=== PATIENT | female | born 1985 | race Caucasian/White ===

== ENCOUNTER 2016-11-14 14:19 | Inpatient (IN) | payer BC ==
[~2016-11-14] VITALS: Ht 160 cm; Wt 80.3 kg
[2016-11-21] VITALS (10 sets, daily range): BP systolic 117–152; BP diastolic 62–84; PULSE 70–102; RESP 16–20; TEMP 98.2–99.8
[2016-11-21] MEDS ORDERED: LACTATED RINGER'S 1000 ML IV SCH (05:45)
[2016-11-21] MEDS ORDERED: LACTATED RINGER'S 1000 ML IV ONE (05:45)
[2016-11-21] MEDS ORDERED: CITRIC ACID-SODIUM CITRATE LIQ 30 ML UDC PO SCH (05:45)
[2016-11-21] MEDS ORDERED: ceFAZolin 2 GM PREMIX 50 ML IV SCH (05:45)
[2016-11-21 06:24] LABS: AUTOMATED NEUTROPHIL # 10.4 TH/MM3 (1.8-7.7); BASOPHIL # 0.1 TH/MM3 (0-0.2); BASOPHIL % 0.4 % (0.0-2.0); EOSINOPHIL # 0.2 TH/MM3 (0-0.4); EOSINOPHIL % 1.4 % (0.0-4.0); HEMATOCRIT 38.2 % (35.0-46.0); HEMO FLAGS DIFF FINAL; LYMPH % 13.9 % (9.0-44.0); LYMPHOCYTE # 1.9 TH/MM3 (1.0-4.8); MEAN CELL VOLUME 87.5 FL (80.0-100.0); MEAN CORPUSCULAR HEMOGLOBIN 30.2 PG (27.0-34.0); MEAN CORPUSCULAR HGB CONC 34.5 % (32.0-36.0); NEUT % 76.3 % (16.0-70.0); PLATELET COUNT 189 TH/MM3 (150-450); RED BLOOD COUNT 4.37 MIL/MM3 (4.00-5.30); RED CELL DISTRIBUTION WIDTH 12.3 % (11.6-17.2); WHITE BLOOD COUNT 13.6 TH/MM3 (4.0-11.0)
[2016-11-21] MEDS ORDERED: PREN29TA PO (06:42)
[2016-11-21 06:47] LABS: BLOOD, URINE NEG (NEG); GLUCOSE,URINE NEG (NEG); KETONE, URINE NEG (NEG); NITRITE,URINE NEG (NEG); PH, URINE 5.5 (5.0-8.5); SQUAMOUS EPITHELIAL CELL URINE 1 /hpf (0-5); URINE COLOR LIGHT-YELLOW (YELLW/STRAW)
[2016-11-21 06:50] LABS: COMMENT (UR) CULT NOT INDICATED; CULTURE IF INDICATED CULT NOT INDICATED
[2016-11-21] MEDS ORDERED: OXYTOCIN 10 UNIT/ML AMP ONE (07:22)
[2016-11-21] MEDS ORDERED: ACETAMINOPHEN 1000 MG/100 ML VIAL IV ONE (07:22)
--- NOTE | 2016-11-21 07:24 | HHI.HP ---
HPI Chief Complaint doing well breech, transfer from [facility] Date Seen: Nov 21, 2016 Time Seen: 07:10 Travel History International Travel<30 Days: No Contact w/Intl Traveler<30Days: No Known Affected Area: No History of Present Illness HPI 39 weeks breech and for primary CS Para: 0 : 1 Last Menstrual Period: Nov 21, 2016 History Past Medical History Medical History: Denies Significant Hx Past Surgical History Surgical History: No Previous Surgery Family History Family History: Negative Social History Alcohol Use: No Tobacco Use: No Substance Abuse: No Allergies-Medications (Allergen,Severity, Reaction): Coded Allergies: No Known Allergies (Unverified , 11/21/16) Home Meds Reported Medications Vit-Iron Carbonyl ( Plus Iron 29-1 mg)1 Tab Tab1 Tab PO DAILY #30 TAB Ref 0 11/21/16 Review of Systems Except as stated in HPI: all other systems reviewed are Neg Physical Exam Exam Limitations: Clinical Condition Vital Signs Date Time Temp Pulse Resp B/P Pulse Ox O2 Delivery O2 Flow Rate FiO2 11/21/16 06:59 101 144/84 11/21/16 06:58 98.6 11/21/16 06:25 98.2 11/21/16 06:15 16 11/21/16 06:04 89 136/81 Narrative GENERAL: Well-nourished, well-developed patient. SKIN: Warm and dry. HEAD: Normocephalic and atraumatic. EYES: No scleral icterus. No injection or drainage. ENT: No nasal drainage noted. Mucous membranes pink. Airway patent. NECK: Supple, trachea midline. No JVD. CARDIOVASCULAR: Regular rate and rhythm without murmurs, gallops, or rubs. RESPIRATORY: Breath sounds equal bilaterally. No accessory muscle use. BREASTS: Bilateral exam showed no masses , no retractions, no nipple discharge. ABDOMEN/GI: Abdomen soft, non-tender, bowel sounds present, no rebound, no guarding Gravid to [-] weeks size Fundal Height: [-] GENITOURINARY: External Genitalia: intact and normal in appearance BUS glands: [-] Cervix: [-] Dilatation: [-] Effacement: [-] Station: [-] Presentation: [-] Membranes: [intact or ruptured] Uterine Contractions: [-] FHT's: Category: [-] Baseline: [-] Reactive: [-] Variability: [-] Decels: [-] EXTREMITIES: No cyanosis or edema. BACK: Nontender without obvious deformity. No CVA tenderness. NEUROLOGICAL: Awake and alert. Motor and sensory grossly within normal limits. Five out of 5 muscle strength in all muscle groups. Normal speech. Data Data Vital Signs Reviewed: Yes Orders Admit To Inpatient (11/21/16 ) Vital Signs (Adult) .ON ADMISSION (11/21/16 05:38) Activity Oob Ad Erum (11/21/16 05:38) ^ Heart (11/21/16 05:38) Urinary Catheter Management OPHELIA.Q8H (11/21/16 05:38) ^ Preps (11/21/16 05:38) Scd / Olaf / Foot Pump OPHELIA.QSHIFT (11/21/16 05:38) ^ Ultrasound For Locatio (11/21/16 05:38) Diet Npo (11/21/16 Breakfast) Type And Screen (11/21/16 05:38) Complete Blood Count With Diff (11/21/16 05:38) Urinalysis - C+S If Indicated (11/21/16 05:38) Lactated Ringer's 1000 Ml Inj (Lr 1000 M (11/21/16 05:45) Lactated Ringer's 1000 Ml Inj (Lr 1000 M (11/21/16 05:45) Citric Acid-Sodium Citrate Liq (Bicitra (11/21/16 05:45) Cefazolin 2 Gm Premix (Ancef 2 Gm Premix (11/21/16 05:45) Labs Laboratory Tests Test 11/21/16 06:00 White Blood Count 13.6 Red Blood Count 4.37 Hemoglobin 13.2 Hematocrit 38.2 Mean Corpuscular Volume 87.5 Mean Corpuscular Hemoglobin 30.2 Mean Corpuscular Hemoglobin 34.5 Concent Red Cell Distribution Width 12.3 Platelet Count 189 Mean Platelet Volume 9.0 Neutrophils (%) (Auto) 76.3 Lymphocytes (%) (Auto) 13.9 Monocytes (%) (Auto) 8.0 Eosinophils (%) (Auto) 1.4 Basophils (%) (Auto) 0.4 Neutrophils # (Auto) 10.4 Lymphocytes # (Auto) 1.9 Monocytes # (Auto) 1.1 Eosinophils # (Auto) 0.2 Basophils # (Auto) 0.1 CBC Comment DIFF FINAL Differential Comment Urine Color LIGHT-YELLOW Urine Turbidity CLEAR Urine pH 5.5 Urine Specific Painter 1.010 Urine Protein NEG Urine Glucose (UA) NEG Urine Ketones NEG Urine Occult Blood NEG Urine Nitrite NEG Urine Bilirubin NEG Urine Urobilinogen LESS THAN 2.0 Urine Leukocyte Esterase NEG Urine RBC 1 Urine WBC 1 Urine Squamous Epithelial 1 Cells Microscopic Urinalysis Comment CULT NOT INDICATED Blood Type O POSITIVE Antibody Screen NEGATIVE Blood Bank Comment Assessment/Plan Problem List: (1) Breech presentation (2) 39 weeks gestation of Discharge Planning dc in 48-72 hours Marcos Bautista MD Nov 21, 2016 07:24
[2016-11-21] MEDS ORDERED: EPIDURAL-NO SYSTEMIC NARCOTICS XX PRN (07:25)
[2016-11-21] MEDS ORDERED: EPIDURAL-DIPHENHYDRAMINE HCL 50 MG CAP PO PRN (07:25)
[2016-11-21] MEDS ORDERED: EPIDURAL-DIPHENHYDRAMINE HCL 50 MG/ML VIAL IV PUSH PRN (07:25)
[2016-11-21] MEDS ORDERED: EPIDURAL-DO NOT ADMINISTER ANTICOAGULANTS XX PRN (07:25)
[2016-11-21] MEDS ORDERED: EPIDURAL-NALOXONE HCL 0.4 MG/ML AMP IV PRN (07:25)
[2016-11-21] MEDS ORDERED: MORPHINE SULFATE PF 5 MG/10 ML VIAL ONE (08:20)
--- NOTE | 2016-11-21 08:41 | PD.OB.DELI ---
Procedure Note Section Procedure Pre Op Diagnosis: (1) Breech presentation (2) 39 weeks gestation of Post Op Diagnosis: (1) Breech presentation Performed by Marcos Bautista Procedure: Primary Low Transverse Sec Indication for delivery: malposition Informed consent obtained: For anesthesia, For procedure Confirmed correct: Patient, Procedure Anesthesia: Epidural Monitoring during procedure: Blood pressure monitoring Urinary catheter: Inserted using sterile technique, To dependent drainage Sterile preparation: Duraprep Position: Supine with wedge to left side Operative Features Skin Incision: Pfannenstiel Uterine Incision: Low transverse w/knife / blunt ext Membranes Ruptured: Artificially Presentation: Occiput anterior Delivery of infant: Uneventful, Other ([place] breech) One Minute : 8 Five Minute : 9 Weight: 7# 9 oz Status of infant: Viable Placenta delivered: Intact Medications: Antibiotics, Oxytocin Estimated blood loss: 500 Procedure tolerated: Well Maternal Condition: Stable Condition: Stable Marcos Bautista MD Nov 21, 2016 08:41
[2016-11-21] MEDS ORDERED: OXYTOCIN 30 UNITS-500ML PREMIX 500 ML IV ONE (08:45)
[2016-11-21] MEDS ORDERED: SODIUM CHLORIDE 0.9% FLUSH 10 ML FLUSH IV FLUSH PRN (08:45)
[2016-11-21] MEDS ORDERED: oxyCODONE/ACETAMINOPHEN 5 MG/325 MG TAB PO PRN ×2 (08:45)
[2016-11-21] MEDS ORDERED: SIMETHICONE 80 MG CHEWABLE TAB PO PRN (08:45)
[2016-11-21] MEDS ORDERED: KETOROLAC TROMETHAMINE 60 MG/2 ML (IM) VIAL IM PRN (08:45)
[2016-11-21] MEDS ORDERED: SODIUM CHLORIDE 0.9% FLUSH 10 ML FLUSH IV FLUSH SCH (09:00)
[2016-11-21] MEDS ORDERED: OXYTOCIN 30 UNITS-500ML PREMIX 500 ML ONE (09:21)
[2016-11-21] MEDS ORDERED: ONDANSETRON HCL 4 MG/2 ML VIAL IV PUSH ONE (11:30)
[2016-11-21] MEDS ORDERED: LACTATED RINGER'S 1000 ML INJ 1,000 ML IV SCH (13:37)
[2016-11-21] MEDS ORDERED: OXYTOCIN 30 UNITS-500ML PREMIX 500 ML IV PRN (18:45)
[2016-11-21] MEDS ORDERED: ONDANSETRON ODT 4 MG TAB PO PRN (20:00)
[2016-11-22 04:00] VITALS: BP 120/72; PULSE 80; RESP 18; TEMP 98.4
[2016-11-22] MEDS: IBUPROFEN 600 MG TAB PO PRN ×2 (04:26→11:43)
[2016-11-22 05:34] VITALS: RESP 16
[2016-11-22 06:11] LABS: AUTOMATED NEUTROPHIL # 15.2 TH/MM3 (1.8-7.7); BASOPHIL % 0.2 % (0.0-2.0); EOSINOPHIL # 0.1 TH/MM3 (0-0.4); EOSINOPHIL % 0.3 % (0.0-4.0); HEMATOCRIT 34.1 % (35.0-46.0); HEMO FLAGS DIFF FINAL; LYMPH % 11.7 % (9.0-44.0); LYMPHOCYTE # 2.2 TH/MM3 (1.0-4.8); MEAN CELL VOLUME 87.5 FL (80.0-100.0); MEAN CORPUSCULAR HEMOGLOBIN 30.9 PG (27.0-34.0); MEAN CORPUSCULAR HGB CONC 35.3 % (32.0-36.0); MONO % 7.6 % (0.0-8.0); NEUT % 80.2 % (16.0-70.0); PLATELET COUNT 203 TH/MM3 (150-450); RED CELL DISTRIBUTION WIDTH 12.3 % (11.6-17.2); WHITE BLOOD COUNT 18.9 TH/MM3 (4.0-11.0)
--- NOTE | 2016-11-22 07:59 | HHI.OB ---
Subjective Post Day: 1 Remarks doing well post op day #1 Objective Vitals/I&O Vital Signs Date Time Temp Pulse Resp B/P Pulse Ox O2 Delivery O2 Flow Rate FiO2 11/22/16 05:34 16 11/22/16 04:00 98.4 80 18 120/72 11/21/16 23:53 117/77 11/21/16 23:53 99.7 79 18 11/21/16 20:00 98.4 75 20 122/69 11/21/16 17:00 99.8 102 18 152/84 11/21/16 12:00 98.2 70 18 120/62 11/21/16 09:48 87 18 118/71 Objective Remarks GENERAL: Well-nourished, well-developed patient. . ABDOMEN/GI: Abdomen soft, non-tender. bandage dry Fundus: Firm, non-tender at umbilicus. GENITOURINARY: Light to moderate bleeding. EXTREMITIES: No cyanosis or edema, non-tender, without signs of DVT. Medications and IVs Current Medications Medications (Trade) Dose Ordered Sig/Kena Route Start Time Stop Time Status Last Admin (Lr 1000 ml Inj) 1,000 ml @ 100 mls/hr Q10H IV 11/21/16 13:37 11/22/16 09:36 11/21/16 13:37 (NS Flush) 2 ml BID IV FLUSH 11/21/16 09:00 (NS Flush) 2 ml UNSCH PRN IV FLUSH 11/21/16 08:45 (Mylicon Chew) 80 mg QID PRN PO 11/21/16 08:45 (Motrin) 600 mg Q6H PRN PO 11/21/16 08:45 11/22/16 04:26 (Toradol Inj) 30 mg Q6H PRN IM 11/21/16 08:45 11/22/16 08:44 (Percocet 5-325 Mg) 1 tab Q4H PRN PO 11/21/16 08:45 (Percocet 5-325 Mg) 2 tab Q4H PRN PO 11/21/16 08:45 (M-M-R Ii Inj) 0.5 ml ONCE ONCE SQ 11/22/16 16:00 11/22/16 16:01 (Boostrix Inj) 0.5 ml ONCE ONCE IM 11/22/16 16:00 11/22/16 16:01 (Zofran Odt) 4 mg Q4H PRN PO 11/21/16 20:00 Assessment/Plan Problem List: (1) Breech presentation (2) 39 weeks gestation of Discharge Planning dc home in AM Marcos Bautista MD Nov 22, 2016 07:58
[2016-11-22] MEDS ORDERED: OXYC1TAB63 PO (08:02)
--- NOTE | 2016-11-22 08:03 | HHI.DCPOC ---
Discharge Care Plan Diagnosis: (1) Breech presentation Report Symptoms to Your Doctor -Temperate above 100.5 degrees -Redness, of incision or excessive or foul smelling drainage -Unusual pain or calf pain -Increased vaginal bleeding -Painful or difficulty urinating -Feelings of extreme sadness or anxiety after 2 weeks Goals to Promote Your Health * To prevent worsening of your condition and complications * To maintain your health at the optimal level Directions to Meet Your Goals Take your medications as prescribed Follow your dietary instruction Follow activity as directed Ensure plenty of rest for recovery Drink fluids for hydration Keep your appointments as scheduled Take your immunizations and boosters as scheduled If your symptoms worsen call your PCP, if no PCP go to Urgent Care Center or Emergency Room Smoking is Dangerous to Your Health. Avoid second hand smoke Call the 24-hour crisis hotline for domestic abuse at Marcos Bautista MD Nov 22, 2016 08:03
--- NOTE | 2016-11-22 08:05 | HHI.DS ---
Admission Date Nov 21, 2016 at 05:36 Discharge Date: Nov 22, 2016 Admitting Diagnosis Diagnosis: (1) Breech presentation Diagnosis: Principal (2) delivery delivered Diagnosis: Secondary : Primary Reason: breech : Single Brief History 39 weeks breech and for primary CS Hospital Course CS on 11/21 wants to go home 11/22 Pt Condition on Discharge: Good Discharge Disposition: Discharge Home Discharge Instructions Diet Instructions: As Tolerated, No Restrictions Activities You Can Perform: Pelvic Rest Activities to Avoid: Driving for 24 hrs Follow up Referrals: INVENTORY TAKER - 2 Weeks @ [facility] with Marcos Bautista MD New Medications: Oxycodone-Acetaminophen (Oxycodone-Acetaminophen) 5-325 mg Tab 2 TAB PO Q4H PRN PAIN SCALE 6 TO 10 #30 TAB Continued Medications: Vit-Iron Carbonyl ( Plus Iron 29-1 mg) 1 Tab Tab 1 TAB PO DAILY Nutritional Supplement #30 Ref 0 TAB Marcos Bautista MD Nov 22, 2016 08:05
[2016-11-22 08:30] VITALS: BP 120/70; PULSE 81; RESP 16; TEMP 98.1
--- NOTE | 2016-11-22 09:34 | MP ---
cc: SALO BAUTISTA M.D. DATE OF PROCEDURE 11/21/2016 PROCEDURE Primary low transverse section. PREOPERATIVE DIAGNOSIS Breech infant, 39 weeks. POSTOPERATIVE DIAGNOSIS Breech , [address] Salo Bautista ESTIMATED BLOOD LOSS 500 cc. ANESTHESIA Spinal, Dr. Crowley. COMPLICATIONS None. FINDINGS Live female , Apgars of 8 and 9. Nazario breech presentation. Weight 7 pounds, 9 ounces. PROCEDURE IN DETAIL After informed consent, the patient was taken to the operating room where she was placed under spinal anesthesia, placed in supine position, left lateral tilt. The abdomen, perineum and vagina were prepped and draped in normal sterile fashion. Time-out was taken and DuraPrep was allowed to dry. Once the patient was under adequate anesthesia and a Thao was draining well, a Pfannenstiel skin incision was carried sharply through the skin to the fascia. The fascia was nicked in the midline and the incision was extended laterally using Mitchell scissors. The rectus muscle was in the midline. The peritoneum was entered bluntly with a finger. The incision was extended laterally using blunt traction. A bladder blade was placed in the abdomen. A bladder flap was created by dissecting the bladder off the lower uterine segment. The bladder blade was replaced to protect the bladder and a low-transverse uterine incision was then made, carried sharply into the uterine cavity. Clear fluid was noted. The incision was extended laterally using traction upward and downward. A hand was placed in the uterus. The infant's buttocks was guided through the incision. Using fundal pressure the infant was delivered all the way up to the level of the scapula. The infant's legs were flexed across the chest and delivered. The infant was rotated to the right and the left arm was flexed across the chest and delivered. The was rotated to the left and the right arm was flexed across the chest and delivered using Mauriceau maneuver, the 's head readily deliver, nose and mouth suctioned well because the baby was coughing up mucus. Cord clamping was waited for 53 seconds and then the cord was clamped, cut and the infant was handed Pediatrics in attendance. The baby was crying vigorously. Cord blood was collected. The placenta was delivered manually. The uterus was exteriorized, wiped free from all remaining products of conception. The uterine incision was then closed with a running locked stitch of chromic suture. Imbricating layer was placed for strength and hemostasis. The uterus was placed back in the abdomen and noted to be hemostatic. The peritoneum was closed with Vicryl suture. The fascia was closed with Vicryl suture. The skin was closed with subcuticular stitch. Each layer was noted be hemostatic prior to closure and the patient tolerated the procedure well. MD JUAN Acosta/MARV /8:45 AM /9:05 AM
[2016-11-22] MEDS ORDERED: MEASLES, MUMPS, RUBELLA VACCINE 0.5 ML VIAL SQ ONE (16:00)
[2016-11-22] MEDS ORDERED: DIPHTH/TETANUS/ACEL PERTUSSIS (BOOSTER) 0.5 ML VIAL/PFS IM ONE (16:00)
== END 2016-11-22 14:23 | disposition home or self-care (01) | DRG 766 ==
LOC: H2EB 11-21 05:36 → H1EA 11-21 09:35
PROVIDERS: ADMIT Obstetrics & Gynecology; ATTEND Obstetrics & Gynecology
PROC: 10D00Z1 Extraction of Products of Conception, Low, Open Approach (ICD-10-PCS; principal; 2016-11-21)
DX: O32.1XX0 Maternal care for breech presentation, not applicable or unspecified (principal); Z37.0 Single live birth; Z3A.39 39 weeks gestation of pregnancy
CPT/HCPCS: 59025; 76815; 81001; 85025; 86850; 86900; 86901; 90715; J0131; J0690; J2274; J2405; J2590; J7120